=== PATIENT | female | born 1940 | race Caucasian/White ===

== ENCOUNTER 2021-11-22 15:59 | Emergency (ER) | payer MEDICARE, BC ==
[2021-11-22] MEDS: Lidocaine 1% with EPINEPHrine 1:100,000 20 ML MDV INJECT ONE (16:25)
== END 2021-11-22 16:40 | disposition home or self-care (01) ==
LOC: LB.ED 15:59
DX: S01.01XA Laceration without foreign body of scalp, initial encounter (principal); I10 Essential (primary) hypertension; Z86.73 Personal history of transient ischemic attack (TIA), and cerebral infarction without residual deficits; Z79.899 Other long term (current) drug therapy; Z88.2 Allergy status to sulfonamides; W18.09XA Striking against other object with subsequent fall, initial encounter; Y92.002 Bathroom of unspecified non-institutional (private) residence as the place of occurrence of the external cause
CPT/HCPCS: 12001; 99282